=== PATIENT | female | born 1990 | race Caucasian/White ===

== ENCOUNTER 2019-11-17 14:31 | Outpatient (REF) | payer SELFPAY ==
[2019-11-17 22:17] LABS: ALT 27 U/L (14-59); AST 19 U/L (15-37); Albumin 3.6 g/dL (3.4-5.0); Alkaline Phosphatase 30 U/L (46-116); Anion Gap 10.7 mmol/L (3-11); BUN 7 mg/dL (7-18); Bilirubin, Total 0.2 mg/dL (0.2-1.0); CO2 24.3 mmol/L (21.0-32.0); CREATININE 0.81 mg/dL (0.55-1.02); Calcium 8.8 mg/dL (8.5-10.1); Chloride 103 mmol/L (98-107); Glucose 88 mg/dL (74-106); Potassium 4.3 mmol/L (3.5-5.1); Sodium 138 mmol/L (136-145)
[2019-11-17 22:31] LABS: VALPROIC ACID 67.5 ug/mL (50-100)
== END 2019-11-17 14:51 ==
LOC: NCHCN 14:31
PROVIDERS: Visit Provider Nurse Practitioner Family
DX: Z51.81 Encounter for therapeutic drug level monitoring (principal); Z79.899 Other long term (current) drug therapy
CPT/HCPCS: 80053; 80164

== ENCOUNTER 2019-12-16 22:19 | Outpatient (REF) | payer MEDICAID, SELFPAY ==
[2019-12-18 16:42] LABS: Patient Race White; SARS-CoV-2 RNA Undetected (Undetected); SARS-CoV-2 Specimen Source Nasal
== END 2019-12-16 22:39 ==
LOC: NCHCN 22:19
PROVIDERS: Visit Provider Nurse Practitioner Family
DX: Z20.828 Contact with and (suspected) exposure to other viral communicable diseases (principal)
CPT/HCPCS: U0003

== ENCOUNTER 2020-04-12 15:03 | Outpatient (REF) | payer MEDICAID, SELFPAY ==
[2020-04-12 22:38] LABS: VALPROIC ACID 50.6 ug/mL (50-100)
[2020-04-12 23:03] LABS: ALT 29 U/L (14-59); AST 20 U/L (15-37); Albumin 3.3 g/dL (3.4-5.0); Alkaline Phosphatase 28 U/L (46-116); Bilirubin, Total 0.2 mg/dL (0.2-1.0); Calculated LDL 136 mg/dL (<100); Cholesterol 201 mg/dL (<200); HDL Cholesterol 48 mg/dL (40-60); Total Protein 6.8 g/dL (6.4-8.2); Triglyceride 88 mg/dL (<150); Vitamin B12 365 pg/mL (193-986)
[2020-04-12 23:25] LABS: Bilirubin, Direct < 0.05 mg/dL (0.00-0.20)
--- NOTE | 2020-04-13 11:45 | PAPFT_PTH ---
PATIENT: LUIS DONG LOC: [facility] U#:[id number] AGE/SX: 29/F ROOM: RE04/12/[address]: Stephanie Abbasi : 1990 BED: DIS: 04/12/2020 SPEC #: [id number] RECD: 04/13/20 12:46 STATUS: ANNA REShine #: [id number] OC: 04/13/20 11:[address]: Stephanie Abbasi DEPT: [facility] Cytology RECD BY: Christina Ballesteros ENTERED: 04/13/20 12:46 SP TYPE: PAPFT OTHR DR: Landry Hubbard Tissues: 1 - CX/ENDOCX FOR PAP SMEARS Procedures: PAP THIN PREP/[facility] Screening Comments: [id number] (CHLAMYDIA/GC)
[2020-04-14 09:35] LABS: HBs Antibody, Quant 3.6 mIU/mL (See Note); Hepatitis B Surface Ab Negative (See Note)
[2020-04-14 10:27] LABS: Syphilis Serology (RPR) Negative (Negative)
[2020-04-14 10:32] LABS: HIV-1/2 Ag & Ab Screen Negative (Negative)
[2020-04-14 15:22] LABS: Chlamydia Result Negative (Negative); GC Result Negative (Negative)
[2020-04-19 10:31] LABS: Hepatitis C Ab w Rflx HCV PCR Negative (Negative)
== END 2020-04-12 15:04 | disposition home or self-care (01) ==
LOC: NCHCN 15:03
PROVIDERS: Visit Provider Nurse Practitioner Family
DX: F31.9 Bipolar disorder, unspecified (principal); Z11.3 Encounter for screening for infections with a predominantly sexual mode of transmission; Z11.4 Encounter for screening for human immunodeficiency virus [HIV]; Z11.59 Encounter for screening for other viral diseases; Z12.4 Encounter for screening for malignant neoplasm of cervix; Z51.81 Encounter for therapeutic drug level monitoring
CPT/HCPCS: 80061; 80076; 86706; 86803; 87340; 87389; 87491; 87591; 88142; 80164; 82607; 86592